=== PATIENT | male | born 1960 | race Caucasian/White ===

== ENCOUNTER 2024-08-19 14:13 | Emergency (ER) | payer MEDICARE, SELFPAY ==
--- OUTSIDE RECORDS SUMMARY | 2024-08-19 14:15 | XMS_ITS | Clinical Summary ---
Author Organization [facility] Address [address] [place] [address] Care Team Providers Care Diabetes Territory Manager Name Role Phone August Xavier MD Primary Care Provider [phone] Allergies No known active allergies Medications glucosamine-glenna droitin 500-400 MG CAPSIndications: Routine general medical examination at a health care facility Take 1 capsule by mouth daily Active Active Problems Problem Noted Date Diagnosed Date Family history of colon cancer 02/04/2014 CARDIOVASCULAR SCREENING; LDL GOAL LESS THAN 160 02/04/2014 Immunizations Name Administration Dates Next Due TDAP (Adacel,Boostrix) 09/30/2023 TDAP Vaccine (Adacel) 02/04/2014 Family History Medical History Relation Comments Dementia Father Born ~1932. Live s in assisted living. Cancer Maternal Grandfather Colon Cancer Mother age 65, col on [place] Cancer Paternal Grandfather Colon Relation Status Comments Father Alive Maternal Grandfather Mother Paternal Grandfather Social History Tobacco Use Types Packs/Day Years Used Date Smoking Tobacco: Never Smokeless Tobacco: Never Alcohol Use Standard Drinks/Week Comments Yes 0 (1 standard drink = 0.6 oz pur e alcohol) 3 beers/day PHQ-2 Answer Date Recorded PHQ-2 Score 0 06/13/2018 Adolescent Education Answer Date Record ed Getting School Help Needed Not on file 09/29 Sex and Gender Information Value Date Recorded Sex Assigned at Not on file Legal Sex 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 MANAGER PROTEIN Gender Identity Not on file Sexual Orientation Not on file 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 Not on file Not on file Last Filed Vital Signs Vital Sign Reading Time Taken Comments Blood Pressure 152/107 09/30/2023 4:52 PM CDT Pulse 76 09/30/2023 4:11 PM CDT Temperature 36.7 C (98.1 F) 07/26/2017 11:44 AM MANAGER PROTEIN Respiratory Rate 17 09/30/2023 4:11 PM CDT Oxygen Saturation 98% 09/30/2023 4:11 PM CDT Inhaled Oxygen Concentration - - Weight 89.1 kg (196 lb 8 oz) 07/26/2017 11:44 AM MANAGER PROTEIN Height 185.4 cm (6' 1) 07/26/2017 11:44 AM MANAGER PROTEIN Body Mass Index 25.93 07/26/2017 11:44 AM MANAGER PROTEIN Plan of Treatment Health Maintenance Due Date Last Done Comments ANNUAL REVIEW OF HM ORDERS 1960 CT COLONOGRAPHY 1960 FIT 1960 FLEX SIG 1960 sDNA (Cologuard) 1960 HIV SCREENING 1973 HEPATITIS C SCREENING 1976 Pneumococcal Vaccine: 50+ Years (1 of 1 - PCV) 2008 ZOSTER IMMUNIZATION (1 of 2) 2008 ADVANCE CARE PLANNING 02/04/2019 02/04/2014 GLUCOSE 04/05/2020 04/05/2017, 05/06, 03/24/2015, Additional history exists LIPID 04/05/2022 04/05/2017, 05/06, 03/24/2015, Additional history exists FALL RISK ASSESSMENT 12/05/2023 MEDICARE ANNUAL WELLNESS VISIT 12/05/2023 07/26/2017, 05/25/2016, 03/24/2015, Additional history exists COVID-19 Vaccine ( - season) 2024 10/01/2020 COLONOSCOPY 04/01/2024 04/01/2014, 04/01/2014 COLORECTAL CANCER SCREENING 04/01/2024 PHQ-2 (once per calendar year) 2024 07/26/2017, 05/25/2016, 03/24/2015 DTAP/TDAP/TD IMMUNIZATION (3 - Td or Tdap) 09/29/2033 09/30/2023, 02/04/2014 RSV VACCINE (1 - 1-dose 75+ series) 2033 HPV IMMUNIZATION Aged Out No longer e ligible based on patient's age to complete this topic INFLUENZA VACCINE Discontinued MENINGITIS IMMUNIZATION Aged Out No l onger eligible based on patient's age to complete this topic RSV MONOCLONAL ANTIBODY Aged Out No l onger eligible based on patient's age to complete this topic Procedures Procedure Name Priority Date/Time Associated Diagnosis Comments COMPREHENSIVE METABOLIC PANEL Routine 04/05/2017 9:07 AM CDT Routine general medical examination at a health care facility LIPID REFLEX TO DIRECT LDL PANEL Routine 04/05/2017 9:07 AM CDT Routine general medical examination at a health care facility COLONOSCOPY Routine 04/01/2014 8:18 AM CDT from Last 3 Months or Most Recently Relevant to Health Maintenance Results * (ABNORMAL) Lipid panel reflex to direct LDL (04/05/2017 9:07 AM CDT) Cholesterol 196 <200 mg/dL 04/05/2017 3:13 PM CDT [facility] Triglycerides 71 <150 mg/dL 04/05/2017 3:13 PM CDT [facility] Comment:Fasting specimen HDL Cholesterol 62 >39 mg/dL 7 3:13 PM CDT [facility] LDL Cholesterol Calculated 120(H) <100 mg/dL 04/05/2017 3:13 PM CDT [facility] Comment: Above desirable: 100-129 mg/dl Borderline High: 130-159 mg/dL High: 160-189 mg/dL Very high: >189 mg/dl Non HDL Cholesterol 134(H) <130 mg/dL 04/05/2017 3:13 PM CDT [facility] Comment: Above Desirable: 130-159 mg/dl Borderline high: 160-189 mg/dl High: 190-219 mg/dl Very high: >219 mg/dl Blood specimen (specimen) 04/05/2017 9:07 AM CDT 04/05/2017 9:12 AM CDT us August Xavier MD LAB - BLOOD ORDERABLES Final R esult [facility] [address] [place] [address] * (ABNORMAL) Comprehensive metabolic panel (04/05/2017 9:07 AM CDT) Sodium 139 133 - 144 mmol/L 04/05/2017 3:13 PM CDT [facility] Potassium 4.2 3.4 - 5.3 mmol/L 04/05/2017 3:13 PM CDT [facility] Chloride 105 94 - 109 mmol/L 04/05/2017 3:13 PM CDT [facility] Carbon Dioxide 24 20 - 32 mmol/L 04/05/2017 3:13 PM CDT [facility] Anion Gap 10 3 - 14 mmol/L 04/05/2017 3:13 PM CDT [facility] Glucose 94 70 - 99 mg/dL 04/05/2017 3:13 PM CDT [facility] Comment:Fasting specimen Urea Nitrogen 23 7 - 30 mg/dL 04/05/2017 3:13 PM CDT [facility] Creatinine 1.26(H) 0.66 - 1.25 mg/dL 04/05/2017 3:13 PM CDT [facility] GFR Estimate 59(L) >60 mL/min/1. 7m2 04/05/2017 3:13 PM CDT [facility] Comment:Non GFR Calc GFR Estimate If Black 71 >60 mL/min/1. 7m2 04/05/2017 3:13 PM CDT [facility] Comment: GFR Calc Calcium 9.0 8.5 - 10.1 mg/dL 04/05/2017 3:13 PM CDT [facility] Bilirubin Total 0.5 0.2 - 1.3 mg/dL 04/05/2017 3:13 PM CDT [facility] Albumin 3.9 3.4 - 5.0 g/dL 04/05/2017 3:13 PM CDT [facility] Protein Total 6.9 6.8 - 8.8 g/dL 04/05/2017 3:13 PM CDT [facility] Alkaline Phosphatase 66 40 - 150 U/L 04/05/2017 3:13 PM CDT [facility] ALT 26 0 - 70 U/L 04/05/2017 3:13 PM CDT [facility] AST 22 0 - 45 U/L 04/05/2017 3:13 PM CDT [facility] Blood specimen (specimen) 04/05/2017 9:07 AM CDT 04/05/2017 9:12 AM CDT us August Xavier MD LAB - BLOOD ORDERABLES Final R esult Performing Organization Address City/State/[facility] Co de Phone Number [facility] [address] [place] [address] * COLONOSCOPY (04/01/2014 8:18 AM CDT) COLONOSCOPY [facility] ___ Patient Name: Sly Lopez Procedure Date: 04/01/2014 8:18 AM Date of : 1960 Admit Type: Outpatient Age: 53 Gender: Male Attending MD: Jair Lebron MD Instrument Name: [id number] ___ Procedure: Colonoscopy Indications: Screening in patient at increased risk: Family history of 1st-degree relative with colorectal cancer Providers: Jair Lebron MD Referring MD: August Xavier MD Medicines: Midazolam 2 mg IV, Fentanyl 100 micrograms IV Complications: No immediate complications. ___ Procedure: Pre-Anesthesia Assessment: - Prior to the procedure, a History and Physical was performed, and patient medications and allergies were reviewed. The patient is competent. The risks and benefits of the procedure and the sedation options and risks were discussed with the patient. All questions were answered and informed consent was obtained. Patient identification and proposed procedure were verified by in the procedure room. Mental Status Examination: alert and oriented. Airway Examination: normal oropharyngeal airway and neck mobility. Respiratory Examination: clear to auscultation. CV Examination: normal. Prophylactic Antibiotics: The patient does not require prophylactic antibiotics. Prior Anticoagulants: The patient has taken no previous anticoagulant or antiplatelet agents. ASA Grade Assessment: I - A normal, healthy patient. After reviewing the risks and benefits, the patient was deemed in satisfactory condition to undergo the procedure. The anesthesia plan was to use moderate sedation / analgesia (conscious sedation). Immediately prior to administration of medications, the patient was re-assessed for adequacy to receive sedatives. The heart rate, respiratory rate, oxygen saturations, blood pressure, adequacy of pulmonary ventilation, and response to care were monitored throughout the procedure. The physical status of the patient was re-assessed after the procedure. After obtaining informed consent, the colonoscope was passed under direct vision. Throughout the procedure, the patient's blood pressure, pulse, and oxygen saturations were monitored continuously. The [id number] was introduced through the anus and advanced to the cecum, identified by appendiceal orifice and ileocecal valve. The colonoscopy was performed without difficulty. The patient tolerated the procedure well. The quality of the bowel preparation was good. Findings: The perianal and digital rectal examinations were normal. A few small-mouthed diverticula were found in the sigmoid colon. The exam was otherwise without abnormality on direct and retroflexion views. Impression: - Diverticulosis in the sigmoid colon. - The examination was otherwise normal on direct and retroflexion views. Recommendation: - Repeat colonoscopy in 5 years for surveillance. Procedure Code(s): --- Professional --- G0105, Colorectal cancer screening; colonoscopy on individual at high risk Diagnosis Code(s): --- Professional --- V16.0, Family history of malignant neoplasm of gastrointestinal tract CPT copyright 2013 [employer]. All rights reserved. The codes documented in this report are preliminary and upon clay artisan review may be revised to meet current compliance requirements. Electronically signed by Jair Lebron MD _ Jair Lebron MD 04/01/2014 8:53 AM I was physically present for the entire viewing portion of the exam. Number of Addenda: 0 Note Initiated On: 04/01/2014 8:18 AM Procedure Date: 04/01/2014 8:18:43 AM Scope Withdrawal Time: 0 hours 6 minutes 22 seconds Total Procedure Duration: 0 hours 12 minutes 16 seconds Scope In: 8:36:41 AM Scope Out: 8:48:57 AM RADIOLOGY RESULTS 04/01/2014 8:18 AM CDT August Xavier MD PROCEDURES Final Result RADIOLOGY RESULTS from Last 3 Months or Most Recently Relevant to Health Maintenance Insurance [facility] Care Teams Diabetes Territory Manager Relationship Specialty Start Date End Date August Xavier MD [address] [facility] [address] [place] [address] PCP - General Internal Medicine 02/06/14
--- OUTSIDE RECORDS SUMMARY | 2024-08-19 14:15 | XMS_ITS | Encounter Summary ---
Author Organization [facility] Address [address] [place] [address] Care Team Providers Care Data Science And Iot Manager Name Role Phone August Xavier MD Primary Care Provider August Xavier MD Unavailable [phone] August Xavier MD Unavailable [phone] Encounter Details Date Type Department Care Team (Late st Contact Info) Description 03/24/2014 MyC Medical Advice [facility] [address] [place] [address] August Xavier MD [address] [place] [address] Social History Tobacco Use Types Packs/Day Years Used Date Smoking Tobacco: Never Smokeless Tobacco: Never Alcohol Use Standard Drinks/Week Comments Yes 0 (1 standard drink = 0.6 oz pur e alcohol) 3 beers/day Sex and Gender Information Value Date Recorded Sex Assigned at Not on file Legal Sex 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 Gender Identity Not on file Sexual Orientation Not on file 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
--- OUTSIDE RECORDS SUMMARY | 2024-08-19 14:15 | XMS_ITS | Encounter Summary ---
Author Organization [facility] Address [address] [place] [address] Care Team Providers Care Banquet Kitchen Supervisor Name Role Phone August Xavier MD Primary Care Provider [phone] August Xavier MD Unavailable [phone] August Xavier MD Unavailable [phone] Encounter Details Date Type Department Care Team (Late st Contact Info) Description 02/08/2014 MyC Medical Advice [facility] [address] [place] [address] August Xavier MD [address] [place] [address] Social History Tobacco Use Types Packs/Day Years Used Date Smoking Tobacco: Never Smokeless Tobacco: Never Alcohol Use Standard Drinks/Week Comments Yes 0 (1 standard drink = 0.6 oz pur e alcohol) 3 beers/day Sex and Gender Information Value Date Recorded Sex Assigned at Not on file Legal Sex 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 EQUIPMENT 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 Gender Identity Not on file Sexual Orientation Not on file 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
--- OUTSIDE RECORDS SUMMARY | 2024-08-19 14:16 | XMS_ITS | Encounter Summary ---
Author Organization [facility] Address [address] [place] [address] Care Team Providers Care Hotel Security Officer Name Role Phone August Xavier MD Primary Care Provider [phone] August Xavier MD Unavailable [phone] August Xavier MD Unavailable [phone] Encounter Details Date Type Department Care Team (Late st Contact Info) Description 04/29/2017 MyC Medical Advice [facility] [address] [place] [address] August Xavier MD [address] [place] [address] Social History Tobacco Use Types Packs/Day Years Used Date Smoking Tobacco: Never Smokeless Tobacco: Never Alcohol Use Standard Drinks/Week Comments Yes 0 (1 standard drink = 0.6 oz pur e alcohol) 3 beers/day Sex and Gender Information Value Date Recorded Sex Assigned at Not on file Legal Sex 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 SHEET TAKER Gender Identity Not on file Sexual Orientation Not on file 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
--- OUTSIDE RECORDS SUMMARY | 2024-08-19 14:16 | XMS_ITS | Encounter Summary ---
Author Organization [facility] Address [address] [place] [address] Care Team Providers Care Associate Professor Of Mathematics Name Role Phone August Xavier MD Primary Care Provider August Xavier MD Unavailable [phone] August Xavier MD Unavailable [phone] Encounter Details Date Type Department Care Team (Late st Contact Info) Description 05/02/2015 MyC Medical Advice [facility] [address] [place] [address] August Xavier MD [address] [place] [address] Social History Tobacco Use Types Packs/Day Years Used Date Smoking Tobacco: Never Smokeless Tobacco: Never Alcohol Use Standard Drinks/Week Comments Yes 0 (1 standard drink = 0.6 oz pur e alcohol) 3 beers/day Sex and Gender Information Value Date Recorded Sex Assigned at Not on file Legal Sex 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 SHEARER HELPER Gender Identity Not on file Sexual Orientation Not on file 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
--- OUTSIDE RECORDS SUMMARY | 2024-08-19 14:16 | XMS_ITS | Encounter Summary ---
Author Organization [facility] Address [address] [place] [address] Care Team Providers Care Engineering Consultant Name Role Phone August Xavier MD Primary Care Provider [phone] August Xavier MD Unavailable [phone] August Xavier MD Unavailable [phone] Encounter Details Date Type Department Care Team (Late st Contact Info) Description 06/05/2016 MyC Medical Advice [facility] [address] [place] [address] August Xavier MD [address] [place] [address] Social History Tobacco Use Types Packs/Day Years Used Date Smoking Tobacco: Never Smokeless Tobacco: Never Alcohol Use Standard Drinks/Week Comments Yes 0 (1 standard drink = 0.6 oz pur e alcohol) 3 beers/day Sex and Gender Information Value Date Recorded Sex Assigned at Not on file Legal Sex 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 PLANT QUALITY MANAGER Gender Identity Not on file Sexual Orientation Not on file 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
[2024-08-19 15:28] VITALS: BP 149/99; PULSE 76; RESP 16; TEMP 36.4; O2SAT 100; BMI 25.7
--- NOTE | 2024-08-19 18:26 | ED.GENADULT ---
HPI - General Adult General Chief complaint: Extremity Pain/Injury, Upper Stated complaint: RT Index finger swollen Time Seen by Provider: 08/19/24 18:10 History of Present Illness HPI narrative: This 63-year-old male comes in with pain and swelling in his right index finger. He was seen about a week ago and given a shot of Rocephin and has been taking Keflex but has not had any improvement. He has large swelling of the distal portion of his right index finger and now extending with erythema into the middle segment of the finger. He states that he did have a small amount of cloudy fluid drain out around the nail several days ago. He does not report any fevers. He states that he did have an x-ray when he went into urgent care and was treated with the antibiotics. The x-ray did show some small shards of metal. 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 Related Data Previous Rx's ?Medication ?Instructions ?Recorded cephalexin 500 mg capsule 500 mg PO TID 7 days #21 caps 08/14/24 amoxicillin 875 mg-potassium 1 tab PO BID #20 tabs 08/19/24 clavulanate 125 mg tablet Allergies Allergy/AdvReac Type Severity Reaction Status Date / Time No Known Drug Allergies Allergy Verified 08/19/24 15:27 Review of Systems Status of ROS: Reports: 10 or more systems reviewed and unremarkable except as noted in History and below Narrative: Constitutional: No fevers, no weight gain or loss. Eyes: No discharge. No vision changes. HENT: No congestion, no sore throat, no ear pain. Cardiovascular: No chest pain, no palpitations. Respiratory: No shortness of breath, no wheezes, no cough. Gastrointestinal: No abdominal pain, no vomiting, no diarrhea. Genitourinary: No dysuria, no hematuria. Musculoskeletal: Right index finger pain and swelling with decreased range of motion. Skin: No rashes, no pruritis. Neurological: No dizziness, weakness, sensory change, speech change. Endo/Heme/Allergies: No bruising or bleeding. No polydipsia. Pysch: no suicidality, no anxiety, no insomnia. All other systems reviewed and are negative. PFSH PFSH Social History Smoking Status: Never smoker How often do you have a drink containing alcohol: 4 or more times a week How many standard drinks containing alcohol do you have on a typical day: 1 or 2 AUDIT-C Alcohol total score: 4 Non-prescribed substance use: denies use Exam Narrative: Exam Narrative: Constitutional: Well-developed, well-nourished, no acute distress. HEENT: Normocephalic, atraumatic. Neck: Normal range of motion. Nontender. Supple. Heart: Intact distal pulses. Lungs: No chest discomfort. No wheezes, rhonchi, or rales. Abdomen: Nontender. Back: Normal range of motion. Extremities: Right index finger has significant swelling from the middle segment out toward the end of the finger. There is erythema and some areas where there is blanching of the skin. There is no skin breakdown or sign of drainage. Skin: Intact. No rash. Warm. No erythema or pallor. Neurologic: No altered sensation. No weakness. Alert and oriented. Psychiatric: No suicidality. No anxiety or depression. No insomnia. Nursing notes and vitals signs are reviewed. Const: Vital Signs, click to edit/add: Vital Signs - 24 hr 08/19/24 15:28 Temperature 97.6 F Pulse Rate [Pulse Oximeter] 76 Respiratory Rate 16 Blood Pressure [Ri ght Upper Arm] 149/99 H Pulse Oximetry 100 Oxygen Delivery Me thod Room Air Course Vital Signs Vital signs: Initial Vital Signs Temperature 97.6 F 08/19/24 15:28 Temperature Source Temporal Artery Scan 08/19/24 15:28 Pulse Rate 76 08/19/24 15:28 Pulse Rhythm Regular 08/19/24 15:28 Respiratory Rate 16 08/19/24 15:28 Blood Pressure 149/99 H 08/19/24 15:28 Blood Pressure Mean 115 H 08/19/24 15:28 Blood Pressure Position Sitting 08/19/24 15:28 Pulse Oximetry 100 08/19/24 15:28 Oxygen Delivery Method Room Air 08/19/24 15:28 Vital Signs Temperature 97.6 F 08/19/24 15:28 Pulse Rate 76 08/19/24 15:28 Respiratory Rate 16 08/19/24 15:28 Blood Pressure 149/99 H 08/19/24 15:28 Pulse Oximetry 100 08/19/24 15:28 Oxygen Delivery Method Room Air 08/19/24 15:28 Temperature 97.6 F 08/19/24 15:28 Pulse Rate 76 08/19/24 15:28 Respiratory Rate 16 08/19/24 15:28 Blood Pressure 149/99 H 08/19/24 15:28 Pulse Oximetry 100 08/19/24 15:28 Oxygen Delivery Method Room Air 08/19/24 15:28 Medical Decision Making MDM Narrative Medical decision making narrative: This patient comes in with persistent pain and swelling with redness of his right index finger despite being on a shot of Rocephin and a course of Keflex. He does not report any injury event to trigger this. 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 There was some suspicion that he may have a felon so I did do a digital block using 1% lidocaine. I did not use a blade to stab into the pulp of his distal finger but did attempt to aspirate with an 18 gauge needle with 3 different approaches. The patient tolerated this well. There was no purulent fluid that I was able to aspirate with these attempts. The patient has been on cephalosporin antibiotics so I decided to switch to Augmentin in the event that but this pathogen may be resistant to his current treatment. Discharge Plan Discharge Clinical Impression: Finger infection Patient Disposition: Home, Self-Care Condition: Stable Additional Instructions: take medication as prescribed. Follow-up with orthopedic clinic if not improving. Call [phone] for appointment. Return if worsening. Prescriptions: New amoxicillin-pot clavulanate 875-125 mg tablet 1 tab PO BID Qty: 20 0RF No Action cephalexin 500 mg capsule 500 mg PO TID 7 Days Qty: 21 0RF Follow Up/Referrals: Provider,Not a Local [Primary Care Provider] - Stand Alone [facility]: [facility] Info Instructions
--- OUTSIDE RECORDS SUMMARY | 2024-08-19 18:42 | XMS_ITS | Encounter Summary ---
Author Organization [facility] Address [address] [place] [address] Care Team Providers Care Lymphedema Therapist Name Role Phone August Xavier MD Primary Care Provider August Xavier MD Unavailable [phone] August Xavier MD Unavailable [phone] Encounter Details Date Type Department Care Team (Late st Contact Info) Description 04/29/2017 MyC Medical Advice [facility] [address] [place] [address] August Xavier MD [address] [place] [address] Social History Tobacco Use Types Packs/Day Years Used Date Smoking Tobacco: Never Smokeless Tobacco: Never Alcohol Use Standard Drinks/Week Comments Yes 0 (1 standard drink = 0.6 oz pur e alcohol) 3 beers/day Sex and Gender Information Value Date Recorded Sex Assigned at Not on file Legal Sex 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 GAME AGENT Gender Identity Not on file Sexual Orientation Not on file 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
--- OUTSIDE RECORDS SUMMARY | 2024-08-19 18:42 | XMS_ITS | Encounter Summary ---
Author Organization [facility] Address [address] [place] [address] Care Team Providers Care Guard Entrance Registrar Name Role Phone August Xavier MD Primary Care Provider August Xavier MD Unavailable [phone] August Xavier MD Unavailable [phone] Encounter Details Date Type Department Care Team (Late st Contact Info) Description 02/08/2014 MyC Medical Advice [facility] [address] [place] [address] August Xavier MD [address] [place] [address] Social History Tobacco Use Types Packs/Day Years Used Date Smoking Tobacco: Never Smokeless Tobacco: Never Alcohol Use Standard Drinks/Week Comments Yes 0 (1 standard drink = 0.6 oz pur e alcohol) 3 beers/day Sex and Gender Information Value Date Recorded Sex Assigned at Not on file 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 Gender Identity Not on file Sexual Orientation Not on file 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
--- OUTSIDE RECORDS SUMMARY | 2024-08-19 18:42 | XMS_ITS | Clinical Summary ---
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 Not on file Not on file Last Filed Vital Signs Vital Sign Reading Time Taken Comments Blood Pressure 152/107 09/30/2023 4:52 PM CDT Pulse 76 09/30/2023 4:11 PM CDT Temperature 36.7 C (98.1 F) 07/26/2017 11:44 AM CLAIMS AGENT [address] Respiratory Rate 17 09/30/2023 4:11 PM CDT Oxygen Saturation 98% 09/30/2023 4:11 PM CDT Inhaled Oxygen Concentration - - Weight 89.1 kg (196 lb 8 oz) 07/26/2017 11:44 AM CLAIMS AGENT [address] Height 185.4 cm (6' 1) 07/26/2017 11:44 AM CLAIMS AGENT [address] Body Mass Index 25.93 07/26/2017 11:44 AM CLAIMS AGENT [address] OF [address] Plan of Treatment Health Maintenance Due Date [...] 196 <200 mg/dL 04/05/2017 3:13 PM CDT [facility] Triglycerides 71 <150 mg/dL 04/05/2017 3:13 PM CDT [facility] Comment:Fasting specimen HDL Cholesterol 62 >39 mg/dL 7 3:13 PM CDT [facility] LDL Cholesterol Calculated 120(H) <100 mg/dL 04/05/2017 3:13 PM CDT [facility] Comment: Above desirable: 100-129 mg/dl Borderline High: 130-159 mg/dL High: 160-189 mg/dL Very high: >189 mg/dl Non HDL Cholesterol 134(H) <130 mg/dL 04/05/2017 3:13 PM CDT [facility] Comment: Above Desirable: 130-159 mg/dl Borderline high: 160-189 mg/dl High: 190-219 mg/dl Very high: >219 mg/dl Blood specimen (specimen) 04/05/2017 9:07 AM CDT 04/05/2017 9:12 AM CDT us August Xavier MD LAB - BLOOD ORDERABLES Final R esult [facility] [address] [place] [address] * (ABNORMAL) Comprehensive metabolic panel (04/05/2017 9:07 AM CDT) Sodium 139 133 - 144 mmol/L 04/05/2017 3:13 PM CDT [facility] Potassium 4.2 3.4 - 5.3 mmol/L 04/05/2017 3:13 PM CDT [facility] Chloride 105 94 - 109 mmol/L 04/05/2017 3:13 PM CDT [facility] Carbon Dioxide 24 20 - 32 mmol/L 04/05/2017 3:13 PM CDT [facility] Anion Gap 10 3 - 14 mmol/L 04/05/2017 3:13 PM CDT [facility] Glucose 94 70 - 99 mg/dL 04/05/2017 3:13 PM CDT [facility] Comment:Fasting specimen Urea Nitrogen 23 7 - 30 mg/dL 04/05/2017 3:13 PM CDT [facility] Creatinine 1.26(H) 0.66 - 1.25 mg/dL 04/05/2017 3:13 PM CDT [facility] GFR Estimate 59(L) >60 mL/min/1. 7m2 04/05/2017 3:13 PM CDT [facility] Comment:Non GFR Calc GFR Estimate If Black 71 >60 mL/min/1. 7m2 04/05/2017 3:13 PM CDT [facility] Comment: GFR Calc Calcium 9.0 8.5 - 10.1 mg/dL 04/05/2017 3:13 PM CDT [facility] Bilirubin Total 0.5 0.2 - 1.3 mg/dL 04/05/2017 3:13 PM CDT [facility] Albumin 3.9 3.4 - 5.0 g/dL 04/05/2017 3:13 PM CDT [facility] Protein Total 6.9 6.8 - 8.8 g/dL 04/05/2017 3:13 PM CDT [facility] Alkaline Phosphatase 66 40 - 150 U/L 04/05/2017 3:13 PM CDT [facility] ALT 26 0 - 70 U/L 04/05/2017 3:13 PM CDT [facility] AST 22 0 - 45 U/L 04/05/2017 3:13 PM CDT [facility] Blood specimen (specimen) 04/05/2017 9:07 AM CDT 04/05/2017 9:12 AM CDT us August Xavier MD LAB - BLOOD ORDERABLES Final R esult Performing Organization Address City/State/[facility] Co de Phone Number [facility] [address] [place] [address] * COLONOSCOPY (04/01/2014 8:18 AM CDT) COLONOSCOPY [facility] ___ Patient Name: Sly Lopez Procedure Date: [...] and oxygen saturations were monitored continuously. The [id number] was introduced through the anus and advanced [...] neoplasm of gastrointestinal tract CPT copyright 2013 [employer]. All rights reserved. The codes documented in this report are preliminary and upon mobility engineer review may be revised to meet current [...] Most Recently Relevant to Health Maintenance Insurance [facility] CHOICE [facility] CHO[facility] Care Teams De Icer Installer Relationship Specialty Start Date End Date August Xavier MD [address] [facility] [address] [place] [address] PCP - General Internal Medicine 02/06/14
--- OUTSIDE RECORDS SUMMARY | 2024-08-19 18:42 | XMS_ITS | Encounter Summary ---
Author Organization [facility] Address [address] [place] [address] Care Team Providers Care Marketing Admin Name Role Phone August Xavier MD Primary Care Provider August Xavier MD Unavailable [phone] August Xavier MD Unavailable [phone] Encounter Details Date Type Department Care Team (Late st Contact Info) Description 03/24/2014 MyC Medical Advice [facility] [address] [place] [address] August Xavier MD [address] [place] [address] Social History Tobacco Use Types Packs/Day Years Used Date Smoking Tobacco: Never Smokeless Tobacco: Never Alcohol Use Standard Drinks/Week Comments Yes 0 (1 standard drink = 0.6 oz pur e alcohol) 3 beers/day Sex and Gender Information Value Date Recorded Sex Assigned at Not on file 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 Gender Identity Not on file Sexual Orientation Not on file 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
--- OUTSIDE RECORDS SUMMARY | 2024-08-19 18:42 | XMS_ITS | Encounter Summary ---
Author Organization [facility] Address [address] [place] [address] Care Team Providers Care Veneer Lathe Operator Name Role Phone August Xavier MD Primary Care Provider August Xavier MD Unavailable [phone] August Xavier MD Unavailable [phone] Encounter Details Date Type Department Care Team (Late st Contact Info) Description 05/02/2015 MyC Medical Advice [facility] [address] [place] [address] August Xavier MD [address] [place] [address] Social History Tobacco Use Types Packs/Day Years Used Date Smoking Tobacco: Never Smokeless Tobacco: Never Alcohol Use Standard Drinks/Week Comments Yes 0 (1 standard drink = 0.6 oz pur e alcohol) 3 beers/day Sex and Gender Information Value Date Recorded Sex Assigned at Not on file 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 Gender Identity Not on file Sexual Orientation Not on file 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
--- OUTSIDE RECORDS SUMMARY | 2024-08-19 18:42 | XMS_ITS | Encounter Summary ---
Author Organization [facility] Address [address] [place] [address] Care Team Providers Care Aboriginal Ceremonial Celebrant Name Role Phone August Xavier MD Primary Care Provider [phone] August Xavier MD Unavailable [phone] August Xavier MD Unavailable [phone] Encounter Details Date Type Department Care Team (Late st Contact Info) Description 06/05/[address] 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
== END 2024-08-19 19:09 | disposition home or self-care (01) ==
PROVIDERS: Emergency Provider Emergency Medicine Emergency Medical Services
DX: M79.644 Pain in right finger(s) (principal); L08.9 Local infection of the skin and subcutaneous tissue, unspecified
CPT/HCPCS: 20600; 99283; 99284